=== PATIENT | female | born 1960 | race Two or more races ===

== ENCOUNTER 2016-06-27 08:58 | Day surgery (SDC) | payer OTHER ==
[~2016-06-27] VITALS: Ht 157.5 cm; Wt 70.8 kg
[2016-06-27 11:09] VITALS: Ht 157.5 cm; Wt 70.8 kg
[2016-06-27] MEDS ORDERED: MULT-761 PO (11:22)
[2016-06-27 11:43] VITALS: BP 138/64; PULSE 95; RESP 16
[2016-06-27] MEDS ORDERED: MIDAZOLAM 1 MG/ML 2 ML INJ ONE ×3 (12:02)
[2016-06-27] MEDS ORDERED: FENTAnyl 50 MCG/ML VIAL ONE (12:02)
[2016-06-27 12:35] VITALS: BP 98/56; PULSE 70; RESP 18
--- NOTE | 2016-06-27 14:42 | GILP ---
DATE OF PROCEDURE: 06/27/2016 PROCEDURE PERFORMED: Colonoscopy with biopsy. INDICATION: A 55-year-old female undergoing this procedure for colon cancer screening. The risks o f the procedure, related and unrelated complications, anesthetic sedative risks, alternatives discus sed and informed consent was obtained. DESCRIPTION OF PROCEDURE: The patient was brought to the GI lab, sedated with Versed 5 mg, fentanyl 100 mg. After optimal sedation, scope was passed with much ease into rectum. Digital examination was done which was normal. Scope was advanced all the way into the presacral area. It could not go into the cecum. IC valve identified. From a distance the cecum was seen which appeared normal. W e tried to change the position all supine and right side but because of the scar tissue in the lower abdomen scope cecum could not be intubated, so at this point decided to remove the scope. Clarity was good. Cleanliness was good. Few diverticula seen on the proximal transverse colon. Rest of th e colon appeared normal. Small hemorrhoids identified. IMPRESSION: 1. Normal findings all the way up to the presacral area. 2. Diverticulosis. 3. Hemorrhoids. PLAN: If patient is anemic or has symptoms then we will repeat colonoscopy in 3 to 5 years. Dictated By: MONICA VALADEZ MD PJ/NTS Conf#: [id number] DID#: [id number] CC: MONICA VALADEZ MD;*EndCC*
== END 2016-06-27 13:23 | disposition home or self-care (01) ==
LOC: GIL 08:58
PROVIDERS: ATTEND Internal Medicine Gastroenterology
DX: Z12.11 Encounter for screening for malignant neoplasm of colon (principal); K57.90 Diverticulosis of intestine, part unspecified, without perforation or abscess without bleeding; K64.9 Unspecified hemorrhoids
CPT/HCPCS: 45378; J2250; J3010; Z7610